=== PATIENT | female | born 1940 | race Caucasian/White ===

== ENCOUNTER 2020-11-17 19:35 | Outpatient (REF) | payer MEDICARE, SELFPAY ==
[2020-11-17 21:02] LABS: Abs Immature Grans 0.01 10^3/uL (0.0-0.06); Absolute Basophil Count 0.03 10^3/uL (0.0-0.2); Absolute Eosinophil Count 0.08 10^3/uL (0.0-0.7); Absolute Lymphocyte Count 1.15 10^3/uL (1.2-3.4); Absolute Monocyte Count 0.53 10^3/uL (0.1-0.8); Absolute Neutrophil Count 4.68 10^3/uL (1.2-6.7); Basophils % 0.5; Eosinophils % 1.2; HCT 43.5 % (36.0-46.0); HGB 13.4 g/dL (11.2-15.7); Immature Grans % 0.2; Lymphocytes % 17.7; MCH 26.4 pg (27.0-33.0); MCHC 30.8 % (32.0-36.0); MCV 85.8 fL (80-95); Monocytes % 8.2; Neutrophils % 72.2; Nucleated RBC 0 %; Platelet Count 205 10^3/uL (130-400); RBC 5.07 10^6/uL (3.93-5.22); RDW 18.5 % (11.7-14.6); RDW-SD 55.9 fL; WBC 6.48 10^3/uL (4.4-10.8)
[2020-11-17 21:23] LABS: Anion Gap 7.9 mmol/L (3-11); BUN 21 mg/dL (7-18); CO2 27.1 mmol/L (21.0-32.0); CREATININE 1.1 mg/dL (0.55-1.02); Calcium 9.2 mg/dL (8.5-10.1); Chloride 107 mmol/L (98-107); Estimated GFR 48.04 (mL/min/1.73m2); Glucose 192 mg/dL (74-106); Potassium 4.8 mmol/L (3.5-5.1); Sodium 142 mmol/L (136-145); TSH 2.13 uIU/mL (0.36-3.74)
[2020-11-17 21:26] LABS: Hemoglobin A1C 8.1 % (<5.7)
== END 2020-11-17 19:36 | disposition home or self-care (01) ==
LOC: LBN 19:35
PROVIDERS: Visit Provider Internal Medicine
DX: I50.9 Heart failure, unspecified (principal); I48.91 Unspecified atrial fibrillation
CPT/HCPCS: 80048; 83036; 84443; 85025